=== PATIENT | female | born 1980 | race Hispanic/Latino ===

== ENCOUNTER 2018-01-09 23:39 | Emergency (ER) | payer OTHER ==
[2018-01-09 23:45] VITALS: RESP 18; O2SAT 100
[2018-01-10] MEDS ORDERED: PROPARACAINE/FLUORESCEIN SOD 100 DROP/5 ML BOTTLE OS STA
--- NOTE | 2018-01-10 00:03 | ED PDOC ---
HPI: Eye Injury/Pain Time Seen by Provider: 01/09/18 23:50 Chief Complaint (Nursing): Eye Problem Chief Complaint (Provider): left eye irritation History Per: Patient History/Exam Limitations: no limitations Onset/Duration Of Symptoms: Hrs (1) Current Symptoms Are (Timing): Still Present Associated Symptoms: Pain, FB Sensation Additional Complaint(s): 37 y/o female presents for evaluation of left eye pain x 2 hours. Patient states she woke up with pain, irritation, and blurred vision in left eye. + FB sensation. Denies fever, headache, drainage from eye, known trauma to eye. Does not wear contacts. Advil taken prior to arrival Past Medical History Reviewed: Historical Data, Nursing Documentation, Vital Signs Vital Signs: Last Vital Signs Temp 98.4 F 01/09/18 23:43 Pulse 90 01/09/18 23:43 Resp 18 01/09/18 23:43 BP 151/85 H 01/09/18 23:43 Pulse Ox 100 01/09/18 23:43 - Medical History PMH: No Chronic Diseases - Surgical History Surgical History: No Surg Hx - Family History Family History: States: No Known Family Hx - Home Medications Home Medications: Ambulatory Orders Medication Instructions Recorded Erythromycin 0.5% [Erythromycin] 1 applic OS Q6 #1 tube 01/10/18 - Allergies Allergies/Adverse Reactions: Allergies Allergy/AdvReac Type Severity Reaction Status Date / Time No Known Allergies Allergy Verified 01/09/18 23:43 Review of Systems ROS Statement: Except As Marked, All Systems Reviewed And Found Negative Eyes: Positive for: Pain (left), Redness (left) Physical Exam - Reviewed Nursing Documentation Reviewed: Yes Vital Signs Reviewed: Yes - Physical Exam Appears: Positive for: Well, Non-toxic, No Acute Distress Head Exam: Positive for: ATRAUMATIC, NORMAL INSPECTION, NORMOCEPHALIC Eye Exam: Positive for: EOMI, PERRL, Conjunctival injection (left). Negative for: Periorbital swelling, Periorbital tenderness - ECG O2 Sat by Pulse Oximetry: 100 - Progress ED Course And Treament: Two drops flucaine applied to left eye Fluro exam reveals faint uptake at 3:00 and 9:00 corneal positions Patient educated on findings, discharged with rx erythromycin ointment Advised follow up Ophthlamology within 2 days Ibuprofen/Tylenol PRN pain Return precautions given Disposition - Clinical Impression Clinical Impression: Corneal abrasion - Patient ED Disposition Is Patient to be Admitted: No Counseled Patient/Family Regarding: Studies Performed, Diagnosis, Need For Followup, Rx Given - Disposition Referrals: Rizwan Rosado MD [Staff Provider] - Disposition: Routine/Home Disposition Time: 00:42 Condition: IMPROVED Prescriptions: Erythromycin 0.5% [Erythromycin] 1 applic OS Q6 #1 tube Instructions: Corneal Abrasion Forms: [facility] (Arabic)
[2018-01-10 01:00] VITALS: BP 138/79; PULSE 78; TEMP 98.2
== END 2018-01-10 00:40 | disposition home or self-care (01) ==
LOC: H.ER 23:39
DX: S05.02XA Injury of conjunctiva and corneal abrasion without foreign body, left eye, initial encounter (principal); Y92.89 Other specified places as the place of occurrence of the external cause